=== PATIENT | female | born 1990 | race Caucasian/White ===

== ENCOUNTER 2021-02-18 04:17 | Emergency (ER) | payer OTHER ==
[~2021-02-18] VITALS: Ht 154.9 cm; Wt 44.5 kg
[2021-02-18] MEDS ORDERED: LIDOCAINE 1%/EPI 1:200,000/PF 10 ML VIAL ID ONE (05:00)
[2021-02-18] MEDS ORDERED: CEPHALEXIN MONOHYDRATE 500 MG CAPSULE PO ONE (05:00)
[2021-02-18] MEDS ORDERED: SULFAMETHOX/TRIMETH DS 800-160 MG/TABLET PO ONE (05:00)
[2021-02-18] MEDS ORDERED: LIDOCAINE/PF 1% 2 ML VIAL IM ONE (05:45)
[2021-02-18] MEDS ORDERED: CefTRIAXone SODIUM 1 GM/VIAL IM ONE (05:45)
[2021-02-18 05:46] VITALS: BP 127/73
== END 2021-02-18 06:15 | disposition left against medical advice (07) ==
LOC: EMS 04:20
DX: L02.414 Cutaneous abscess of left upper limb (principal); F11.90 Opioid use, unspecified, uncomplicated; F15.90 Other stimulant use, unspecified, uncomplicated; B19.20 Unspecified viral hepatitis C without hepatic coma; F32.A Depression, unspecified; Z53.29 Procedure and treatment not carried out because of patient's decision for other reasons
CPT/HCPCS: 10061; 96372; 99284; J0696; J3490 ×2; 10060; 99283